=== PATIENT | female | born 2005 | race Caucasian/White ===

== ENCOUNTER 2024-04-06 13:30 | Outpatient (RCR) | payer BC, SELFPAY | END 2024-04-25 09:56 | disposition home or self-care (01) | DX: M23.269 Derangement of other lateral meniscus due to old tear or injury, unspecified knee (principal); S70.10XA Contusion of unspecified thigh, initial encounter; Z51.89 Encounter for other specified aftercare | CPT/HCPCS: 97110; 97140; 97161 ==

== ENCOUNTER 2024-08-22 14:00 | Outpatient (RCR) | payer BC, SELFPAY | END 2024-12-12 12:01 | disposition home or self-care (01) | PROVIDERS: PCP Orthopaedic Surgery; Visit Provider Orthopaedic Surgery | DX: S83.232A Complex tear of medial meniscus, current injury, left knee, initial encounter (principal); M25.562 Pain in left knee; Z51.89 Encounter for other specified aftercare | CPT/HCPCS: 97110; 97161 ==